=== PATIENT | female | born 1930 | race Caucasian/White ===

== ENCOUNTER 2016-09-25 09:31 | Outpatient (CLI) | payer OTHER ==
[2016-09-25 10:14] LABS: BASOPHILS % 0.7 (0.0-1.5); EOSINOPHILS % 2.1 % (0.0-6.8); MEAN CORPUSCULAR VOLUME 97.7 fl (80.0-100.0); MONOCYTES % 6.2 % (0.0-11.0); NEUTROPHILS # 2.9 # k/uL (1.4-7.7)
[2016-09-25 10:29] LABS: eGFR (African) > 60; eGFR (Non-African) > 60
== END 2016-09-25 09:32 ==
LOC: LAB 09:31
PROVIDERS: ATTEND Family Medicine
DX: E11.9 Type 2 diabetes mellitus without complications (principal); E78.5 Hyperlipidemia, unspecified; I10 Essential (primary) hypertension; D50.9 Iron deficiency anemia, unspecified
CPT/HCPCS: 36415; 80053; 80061; 83540; 85025

== ENCOUNTER 2017-03-15 10:04 | Outpatient (CLI) | payer OTHER ==
[2017-03-15 10:27] LABS: BASOPHILS % 2.7 (0.0-1.5); EOSINOPHILS % 0.4 % (0.0-6.8); MEAN CORPUSCULAR HEMOGLOBIN 31.6 pg (28.0-34.0); MEAN CORPUSCULAR VOLUME 98.9 fl (80.0-100.0); MONOCYTES % 12.3 % (0.0-11.0); NEUTROPHILS # 2.5 # k/uL (1.4-7.7)
[2017-03-15 10:51] LABS: eGFR (African) > 60; eGFR (Non-African) 41
== END 2017-03-15 10:05 ==
LOC: LAB 10:04
PROVIDERS: ATTEND Physician Assistant
DX: R11.2 Nausea with vomiting, unspecified (principal)
CPT/HCPCS: 36415; 80048; 85025

== ENCOUNTER 2017-09-17 07:30 | Outpatient (CLI) | payer OTHER ==
[2017-09-17 08:11] LABS: BASOPHILS % 0.7 (0.0-1.5); EOSINOPHILS % 1.6 % (0.0-6.8); MEAN CORPUSCULAR HEMOGLOBIN 31.8 pg (28.0-34.0); MEAN CORPUSCULAR VOLUME 100.9 fl (80.0-100.0); MONOCYTES % 8.1 % (0.0-11.0); NEUTROPHILS # 2.4 # k/uL (1.4-7.7)
[2017-09-17 08:32] LABS: eGFR (African) > 60; eGFR (Non-African) > 60
== END 2017-09-17 13:32 ==
LOC: LAB 07:30
PROVIDERS: ATTEND Family Medicine
DX: E11.9 Type 2 diabetes mellitus without complications (principal); E78.5 Hyperlipidemia, unspecified; I10 Essential (primary) hypertension
CPT/HCPCS: 36415; 80053; 80061; 83036; 85025

== ENCOUNTER 2017-09-30 15:29 | Outpatient (CLI) | payer OTHER ==
--- NOTE | 2017-09-30 17:27 | Diagnostic Imaging Report ---
[facility] [id number] [id number] Report Submission Date: Sep 30, 2017 5:15:57 PM CDT Patient Study Name: SULLY STEWART Date: Sep 30, 2017 3:47:16 PM CDT Modality Type: US Gender: F Description: : 30 Institution: [facility] Physician: RANJANA HAMILTON Examination: Carotid artery ultrasound History: Syncope Comparison exams: None available Findings: Right carotid: Common carotid artery peak systolic velocity 69.1 cm/s; end diastolic velocity 14.7 cm/s. Internal carotid artery peak systolic velocity 92.6 cm/s; end diastolic velocity 18.3 cm/s. External carotid artery velocity to 123.5cm/s. Vertebral artery velocity 32.4 cm/s Vertebral flow antegrade. Normal waveforms. No occlusive plaquing. Left carotid: Common carotid artery peak systolic velocity 81.9 cm/s; end diastolic velocity 16.0 cm/s. Internal carotid artery peak systolic velocity 106.5 cm/s; end diastolic velocity 28.4 cm/s. External carotid artery velocity to 79.7 cm/s. Vertebral artery velocity 18.0 cm/s Vertebral flow antegrade. Normal waveforms. No occlusive plaquing. Right ICA/CCA Ratio: 1.34; Left ICA/CCA Ratio 1.3 Impression: Scattered nonocclusive plaquing. Carotids ratios not elevated. No restriction to hemodynamic flow. Electronically signed on Sep 30, 2017 5:15:57 PM CDT by: Gallo SOFIA
== END 2017-09-30 15:30 ==
LOC: RAD 15:29
PROVIDERS: ATTEND Family Medicine
DX: I65.23 Occlusion and stenosis of bilateral carotid arteries (principal)
CPT/HCPCS: 93880

== ENCOUNTER 2018-03-23 09:08 | Day surgery (SDC) | payer OTHER ==
[~2018-03-23 09:08] MED LIST: LACTATED RINGERS 1,000 ML IV.SOLN IV ONE; LIDOCAINE HCL 2% PF 100MG/5ML VIAL IJ ONE; PROPOFOL 200 MG/20 ML VIAL IV ONE
--- NOTE | 2018-03-25 11:55 | GI Report ---
REFERRING PHYSICIAN: Dr. Bruno Owen PLANOGRAPH OPERATOR: Trevor Whitaker MD PROCEDURE MEDICATION: Propofol as per anesthesia. HISTORY: This is an 88-year-old woman who has episodes of vomiting. She has been a long- standing diabetic and has been obese, although recently has lost weight. She takes a number of medications for blood pressure, metformin, and she is on pantoprazole. She does take tramadol for pain and does take a baby aspirin. She has had carotid surgery, back surgery, appendix, and a cholecystectomy many years ago. PROCEDURE PERFORMED: Endoscopy. PROCEDURE: An Olympus video endoscope was passed through the esophagus under direct visualization. She has mild esophagitis, grade 2, at the GE junction. The stomach is entered. She has gastroparesis. There is really not much motility and mild gastritis. I do not see specific ulcerations. Pylorus is open. Duodenal bulb and first and second part of the duodenum have areas of atrophic mucosa but other areas look near normal. Patient tolerated the procedure. FINDINGS: 1. Kind of a chronic atrophic gastritis. 2. Gastroparesis. RECOMMENDATIONS: 1. Again, an 88-year-old on multiple medications and that is going to be difficult. The least pain medicine she takes, like tramadol, would be beneficial. 2. Put her on a gastroparesis diet, diabetic diet, 3 small meals and 3 small [id number] snacks. 3. Try to stay upright after meals. 4. Would elevate the head of the bed about 3 inches. 5. Again, there are no really good safe promotility agents to use in this age group. cc: Dr. Bruno SOFIA
== END 2018-03-23 11:37 ==
LOC: OPSURG 09:08
PROVIDERS: ATTEND Internal Medicine Gastroenterology
DX: K31.84 Gastroparesis (principal); K29.40 Chronic atrophic gastritis without bleeding
CPT/HCPCS: 43235; J2001; J2704; J7120; S1016

== ENCOUNTER 2018-09-16 08:06 | Outpatient (CLI) | payer OTHER ==
[2018-09-16 08:24] LABS: BASOPHILS % 0.3 % (0.0-1.5)
[2018-09-16 08:59] LABS: A1C 5.4 % (<5.7); HDL 57 mg/dL (>40); eGFR (Non-African) 43
== END 2018-09-16 08:08 ==
LOC: LAB 08:06
PROVIDERS: ATTEND Family Medicine
DX: I10 Essential (primary) hypertension (principal)
CPT/HCPCS: 36415; 80053; 80061; 83036; 85025

== ENCOUNTER 2018-11-13 14:57 | Outpatient (CLI) | payer OTHER ==
[2018-11-14 07:40] LABS: NEUTROPHILS # 3.4 # k/uL (1.4-7.7); eGFR (Non-African) 41
== END 2018-11-13 15:00 ==
LOC: LAB 14:57
PROVIDERS: ATTEND Family Medicine
DX: D64.9 Anemia, unspecified (principal); I10 Essential (primary) hypertension; R41.3 Other amnesia
CPT/HCPCS: 36415; 80053; 82607; 83921; 84439; 84443; 84481; 85025